=== PATIENT | male | born 1960 | race Two or more races ===

== ENCOUNTER 2016-12-10 15:46 | Emergency (ER) | payer SELFPAY ==
[~2016-12-10] VITALS: Ht 177.8 cm; Wt 86.2 kg
[2016-12-10 15:56] VITALS: BP 112/75
== END 2016-12-10 16:19 | disposition home or self-care (01) ==
LOC: ER 15:48
DX: R51 Headache (principal); M54.2 Cervicalgia; V49.40XA Driver injured in collision with unspecified motor vehicles in traffic accident, initial encounter; Y93.89 Activity, other specified; Y92.413 State road as the place of occurrence of the external cause; Y99.8 Other external cause status
CPT/HCPCS: 99282; A4606; Z7610